=== PATIENT | female | born 1945 | race Caucasian/White ===

== ENCOUNTER → 2021-02-23 10:09 | Outpatient (CLI) | payer MEDICARE, SELFPAY ==
--- NOTE | ~2021-02-23 | MM_ITS ---
EXAMINATION: MM screening ed BI w bro HISTORY: Screening mammogram TECHNIQUE: Craniocaudal and mediolateral oblique 3-D tomosynthesis images were obtained and synthetic 2-D images were generated. CAD analysis was submitted and interpreted. COMPARISON: 04/28/2019 bilateral digital screening mammogram BREAST PARENCHYMAL COMPOSITION: The breasts are almost entirely fatty. FINDINGS: There is no evidence of suspicious mass, calcification, or architectural distortion to sugg est malignancy in either breast. There has been no suspicious interval change. IMPRESSION: 1. No mammographic evidence of malignancy. 2. Recommend routine screening mammography in one year. BI-RADS Category 1: Negative Reviewed, dictated and finalized at location A.
--- NOTE | ~2021-02-23 | DEXA_ITS ---
Bone Density Report Name: Sangita Yepez Age: 76 Sex: Female Ethnicity: White Date of : 1945 Indication: postmenopausal; screening for osteoporosis; height loss; prior fracture; Referring Provider: ROBBIE, VAL Kelly Study: Bone densitometry was performed. Exam Date: February 23, 2021 Accession number: [id number] Bone Density: Region BMD T-score Z-score Classification AP Spine (L1-L4) 1.002 -0.4 1.9 Normal Femoral Neck (Left) 0.729 -1.1 0.9 Osteopenia Total Hip (Left) 0.865 -0.6 1.1 Normal Femoral Neck (Right) 0.719 -1.2 0.9 Osteopenia Total Hip (Right) 0.878 -0.5 1.2 Normal Total Hip Mean 0.872 -0.6 1.2 Normal World Health Organization criteria for BMD impression classify patients as: Normal (T-score at or above -1.0), Osteopenia (T-score between -1.0 and -2.5), or Osteoporosis (T-score at or below -2.5). 10-year Fracture Risk: FRAX not reported because: Treated for osteoporosis Clinical Information Provided by Patient: Has had a low trauma fracture Is being treated for osteoporosis Has used the following medications: Fosamax (i.e. alendronate), Vitamin D, Calcium Patient maximum height was 66.5 Menopause Age: 55 No regular weight bearing exercise Drinks caffeinated beverages Onset of menses at age 15 Number of children 3 Impression: The patient has low bone mass, based on the Right Femoral Neck T-score. The patient has risk factors, including: previous fracture. Discussion: It is important to ask patients whether they are taking their medications and to encourage continued and appropriate compliance with their osteoporosis therapies to reduce fracture risk. It is also important to review their risk factors and encourage appropriate calcium and vitamin D intakes, exercise, fall prevention and other lifestyle measures. Follow-Up: Consider a repeat BMD and Vertebral Fracture Assessment (VFA) exam in 2 years or sooner if medically necessary, to reassess this patient's status. Reported by: MALI on 02/23/2021 10:35:00 AM. Reviewed, dictated and finalized at location ALizzy BARLOW
== END ==
PROVIDERS: Visit Provider Family Medicine
DX: Z12.31 Encounter for screening mammogram for malignant neoplasm of breast (principal); Z78.0 Asymptomatic menopausal state; M85.852 Other specified disorders of bone density and structure, left thigh; M85.851 Other specified disorders of bone density and structure, right thigh
CPT/HCPCS: 77063; 77067; 77080

== ENCOUNTER → 2022-07-12 09:40 | Outpatient (CLI) | payer MEDICARE, SELFPAY ==
--- NOTE | ~2022-07-12 | CT_ITS ---
EXAMINATION: CT abdomen pelvis w con INDICATION: Right-sided abdominal mass TECHNIQUE: Computed tomographic images of the abdomen and pelvis were obtained after the administrati on of 100 cc of Omnipaque 350 intravenous contrast. The dose-length product (DLP) was 1067.31 mGy-cm. Automated exposure control and iterative reconstruction technique were employed. COMPARISON: 04/20/2019 FINDINGS: Minimal dependent atelectasis is present in the lung bases. The heart size is normal. The l iver, spleen, pancreas, gallbladder, and adrenal glands are normal. Cysts of the kidneys measure up t o 3.6 cm on the right. There is cortical scarring and atrophy of the kidneys, right greater than left . No pathologically enlarged abdominal or pelvic lymph nodes are identified. There is no free intrape ritoneal gas or evidence of bowel obstruction. No definite abdominal wall mass is identified. A uteri ne fibroid is again noted. There is osteitis pubis. There is severe lumbar spondylosis. IMPRESSION: 1. No CT correlate for the patient's symptoms. Reviewed, dictated and finalized at location F.
[2022-07-12 10:02] LABS: Estimated Glomerular Filt Rate > 60
== END ==
PROVIDERS: PCP Internal Medicine; Visit Provider Surgery
DX: R19.03 Right lower quadrant abdominal swelling, mass and lump (principal)
CPT/HCPCS: 74177; Q9967

== ENCOUNTER → 2022-08-16 14:13 | Outpatient (CLI) | payer MEDICARE, SELFPAY ==
--- NOTE | ~2022-08-16 | US_ITS ---
EXAMINATION: US soft tissue abdomen DATE: 08/16/2022 14:47 INDICATION: RT abd wall mass . TECHNIQUE: Grayscale and Doppler ultrasound images of the right abdomen were obtained. COMPARISON: None. FINDINGS: The right abdomen was interrogated sonographically in the area of palpable abnormality. The re is a well-circumscribed ovoid 2.1 x 0.7 x 2.3 cm area of avascular, fat echogenicity corresponding to the palpable abnormality. No other solid or cystic mass. IMPRESSION: 2.1 cm fat echogenicity mass in the area of the palpable abnormality which may correspond to a lipoma or a normal lobule of fat. Reviewed, dictated and finalized at location K. [employer]
== END ==
PROVIDERS: PCP Internal Medicine; Visit Provider Surgery
DX: R19.03 Right lower quadrant abdominal swelling, mass and lump (principal)
CPT/HCPCS: 76705

== ENCOUNTER 2023-12-29 09:51 | Outpatient (CLI) | payer MEDICARE, SELFPAY ==
--- NOTE | ~2023-12-29 | CT_ITS ---
EXAMINATION: CT femur LT wo con DATE: 12/29/2023 10:21 INDICATION: Closed fracture of lower end of left femur. TECHNIQUE: Computed tomography (CT) of the left femur was performed without intravenous contrast. Aut omated exposure control and iterative reconstruction technique were employed. The dose-length product was 1654.41 mGy-cm. 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 The distal asp ect of the tibial component is not included. No periprosthetic lucency to suggest loosening or infect ion. There is a fracture of the distal lateral aspect of the femur adjacent to the arthroplasty in ne ar anatomic alignment. There is mild left hip osteoarthritis. No knee joint effusion. IMPRESSION: 1. Periprosthetic fracture of distal lateral aspect of left femur. 2. Mild left hip osteoarthritis. Reviewed, dictated and finalized at location A.
== END 2023-12-29 09:52 ==
LOC: GOSHIMG 09:54
DX: S52.501D Unspecified fracture of the lower end of right radius, subsequent encounter for closed fracture with routine healing (principal); S72.492D Other fracture of lower end of left femur, subsequent encounter for closed fracture with routine healing; Z68.43 Body mass index [BMI] 50.0-59.9, adult; X58.XXXD Exposure to other specified factors, subsequent encounter; M16.12 Unilateral primary osteoarthritis, left hip
CPT/HCPCS: 73700